=== PATIENT | female | born 1980 | race Hispanic/Latino ===

== ENCOUNTER 2023-03-14 15:20 | Emergency (ER) | payer BC ==
--- OUTSIDE RECORDS SUMMARY | 2023-03-14 15:23 | XMS REPORT | Continuity of Care Document ---
:[address] [facility] t Address [address] [place] [address] Care Team Providers Name Role Phone Asked, No Pcp Primary Care Physician Unavailable Levy DIAZ, Candy Wilkinson Attending Clinician [phone] Juan Ventura MD Attending Clinician [phone] Dorothy Carmona MD Attending Clinician [phone] DOROTHY CARMONA Admitting Clinician Unavailable Payers Payer Name Policy Type Policy Number Effective Date Expiration Date S ource Problems Condition Condition Condition Status Onset Resolution Last Treating Co mments Source Name Details Category Date Date Treatment Clinician Date Acute Acute Disease Active Methodi hypoxemic hypoxemic 7-17 st respirator respirator 00:00: Ho spita y failure y failure 00 l due to due to COVID-19 COVID-19 Pneumonia Pneumonia Disease Active Met hodi due to due to 7-12 st COVID-19 COVID-19 00:00: Hospit a virus virus 00 l Allergies, Adverse Reactions, Alerts This patient has no known allergies or adverse reactions. Family History Family Member Diagnosis Comments Start Date Stop Date Source Natural father Asthma [facility] Natural mother Diabetes [facility] Natural mother Hyperthyroidism [facility] Social History Social Habit Start Date Stop Date Quantity Comments Source History SDOH [facility] Std Drinks Hospit al History SDOH [facility] Binge [facility] History SDOH [facility] Comment Hospital Gender identity [facility] History of Social 2022-12-20 2022-12-[address] function 00:00:00 00:00:00 Hospital Tobacco use and 2021-04-22 2021-04-22 Smokeless [facility] exposure 00:00:00 00:00:00 tobacco non-user Hospital History SDOH 2021-04-22 2021-04-22 1 [facility] Alcohol Frequency 00:00:00 00:00:00 Hospita l Alcohol intake 2021-04-22 2021-04-22 Lifetime [facility] 00:00:00 00:00:00 non-drinker Hospital (finding) Sex Assigned At [birth year] [facility] 00:[facility]00 Hospital Smoking Status Start Date Stop Date Source Never smoked tobacco [facility] Medications Ordered Filled Start Stop Current Ordering Indication Dosage Frequency Signature Comments Components Source Medication Medication Date Date Medication? Clinician (SIG) Name Name metFORMIN No 500mg Q.5D Take 1 Meth troy (Glucophage 04-[address] ) 500 mg 00:00: 04:59 (500 mg Hospi ta tablet 00 :00 total) by l mouth 2 (two) times a day with meals for 30 days. albuterol No 2{puff} Q6H Inhale 2 Methodi (PROAIR 04-[address] HFA) 90 00:00: 04:59 every 6 Hospit a mcg/actuati 00 :00 (six) l on inhaler hours as needed for wheezing for up to 30 days. predniSONE No 40mg QD Take 2 Meth troy (DELTASONE) 04-[address] 20 mg 00:00: 04:59 (40 mg Hospita tablet 00 :00 total) by l mouth daily for 5 days. Immunizations Ordered Immunization Filled Immunization Date Status Commen ts Source Name Name Remdesivir 2021-04-26 Completed [facility] 00:00[facility]00 [facility] Remdesivir 2021-04-26 Completed [facility] 00:00:00 [facility] Remdesivir 2021-04-25 Completed [facility] 00:00:00 Hospital Remdesivir 2021-04-25 Completed [facility] 00:00:00 [facility] Remdesivir 2021-04-24 Completed [facility] 00:00:00 Hospital Remdesivir 2021-04-24 Completed [facility] 00:00:00 [facility] Remdesivir 2021-04-23 Completed [facility] 00:00:00 [facility] 2021-04-23 Completed [facility] 00:00:00 [facility] 2021-04-22 Completed [facility] 00:00:00 [facility] 2021-04-22 Completed [facility] 00:00:00 [facility] Vital Signs Vital Name Observation Time Observation Value Comments Source Systolic blood 2021-04-28 16:37:03 110 mm[Hg] [facility] pressure Diastolic blood 2021-04-28 16:37:03 72 mm[Hg] [facility] pressure Heart rate 2021-04-28 16:37:03 92 /min [facility] Body temperature 2021-04-28 16:37:03 36.22 Teresa [facility] Respiratory rate 2021-04-28 16:37:03 20 /min [facility] Oxygen saturation in 2021-04-28 16:37:03 95 /min [facility] Arterial blood by Pulse oximetry Body weight 2021-04-28 11:00:00 131.362 kg [facility] BMI 2021-04-28 11:00:00 36.20 kg/m2 [facility] Body height 2021-04-22 06:48:40 190.5 cm [facility] Procedures Procedure Date / Time Performing Clinician Source Performed POC GLUCOSE 2021-04-28 16:35:00 [facility] POC GLUCOSE 2021-04-28 13:42:00 [facility] POC GLUCOSE 2021-04-28 12:59:00 [facility] XR CHEST 1 VW PORTABLE 2021-04-28 12:52:58 Arpan Burgos [facility] Nomaan MAGNESIUM LEVEL 2021-04-28 10:26:00 [facility] PHOSPHORUS LEVEL 2021-04-28 10:26:00 Candy Lockett [facility] -Ld HC COMPLETE BLD COUNT 2021-04-28 10:26:00 Candy Lockett [facility] W/AUTO DIFF -Ld PROTHROMBIN TIME WITH INR 2021-04-28 10:26:00 Candy Lockett [facility] -Ld C-REACTIVE PROTEIN 2021-04-28 10:26:00 Zahiruddin, [facility] Nomn D-DIMER 2021-04-28 10:26:00 [facility] [place] FERRITIN LEVEL 2021-04-28 10:26:00 [facility] [place] FIBRINOGEN 2021-04-28 10:26:00 [facility] [place] INTERLEUKIN 6 2021-04-28 10:26:00 [facility] [place] LDH 2021-04-28 10:26:00 [facility] ESTIMATED GFR 2021-04-28 10:26:00 [facility] BASIC METABOLIC PANEL 2021-04-28 10:26:00 Candy Lockett [facility] -Ld POC GLUCOSE 2021-04-28 10:09:00 [facility] POC GLUCOSE 2021-04-28 06:44:00 [facility] POC GLUCOSE 2021-04-28 02:00:00 [facility] POC GLUCOSE 2021-04-27 22:32:00 [facility] DUPLEX VENOUS UPPER 2021-04-27 20:30:00 Aubrey [facility] EXTREMITY BILATERAL [place]omaan POC GLUCOSE 2021-04-27 16:37:00 [facility] US DUPLEX VENOUS LOWER 2021-04-27 15:00:00 Christianne Cowan [facility] EXTREMITY BILATERAL Zouheir XR CHEST 1 VW PORTABLE 2021-04-27 12:57:57 Aubrey [facility] [place] POC GLUCOSE 2021-04-27 12:44:00 [facility] LDH 2021-04-27 09:50:00 [facility] [place] BASIC METABOLIC PANEL 2021-04-27 09:50:00 Candy Lockett [facility] -Ld MAGNESIUM LEVEL 2021-04-27 09:50:00 Candy Lockett [facility] -Ld PHOSPHORUS LEVEL 2021-04-27 09:50:00 [facility] COMPLETE BLD COUNT 2021-04-27 09:50:00 [facility] -Ld PROTHROMBIN TIME WITH INR 2021-04-27 09:50:00 Candy Lockett [facility] -Ld C-REACTIVE PROTEIN 2021-04-27 09:50:00 Aubrey [facility] [place] THYROID STIMULATING 2021-04-27 09:50:00 Marielle Skinner [facility] HORMONE D-DIMER 2021-04-27 09:50:00 [facility] [place] FERRITIN LEVEL 2021-04-27 09:50:00 [facility] FIBR[facility]EN 2021-04-27 09:50:00 [facility] [place] ESTIMATED GFR 2021-04-27 09:50:00 [facility] POC GLUCOSE 2021-04-27 09:05:00 [facility] POC GLUCOSE 2021-04-27 05:59:00 [facility] POC GLUCOSE 2021-04-27 01:27:00 [facility] POC GLUCOSE 2021-04-26 21:41:00 [facility] POC GLUCOSE 2021-04-26 15:22:00 [facility] XR CHEST 1 VW PORTABLE 2021-04-26 14:35:00 Aubrey [facility] Nomaan POC GLUCOSE 2021-04-26 13:19:00 [facility] D-DIMER 2021-04-26 09:52:00 [facility] FERRITIN LEVEL 2021-04-26 09:52:00 [facility] FIBRINOGEN 2021-04-26 09:52:00 [facility] INTERLEUKIN 6 2021-04-26 09:52:00 [facility] [place] LDH 2021-04-26 09:52:00 [facility] [place] BASIC METABOLIC PANEL 2021-04-26 09:52:00 Candy Lockett Met [facility] -Ld MAGNESIUM LEVEL 2021-04-26 09:52:00 [facility] PHOSPHORUS LEVEL 2021-04-26 09:52:00 Candy Lockett [facility] -Ld CBC WITH PLATELET AND 2021-04-26 09:52:00 Candy Lockett Met [facility] PROTHROMBIN TIME WITH INR 2021-04-26 09:52:00 Candy Lockett [facility] C-REACTIVE PROTEIN 2021-04-26 09:52:00 [facility] [place] ESTIMATED GFR 2021-04-26 09:52:00 [facility] MANUAL DIFFERENTIAL 2021-04-26 09:52:00 [facility] POC GLUCOSE 2021-04-26 09:01:00 [facility] POC GLUCOSE 2021-04-26 04:51:00 [facility] POC GLUCOSE 2021-04-25 23:18:00 [facility] POC GLUCOSE 2021-04-25 17:38:00 [facility] XR CHEST 1 VW PORTABLE 2021-04-25 14:23:00 Aubrey [facility] Nomaan POC GLUCOSE 2021-04-25 13:25:00 [facility] CBC WITH PLATELET AND 2021-04-25 09:35:00 [facility] DIFFERENTIAL Aimee COMPREHENSIVE METABOLIC 2021-04-25 09:35:00 [facility] PANEL Aimee C-REACTIVE PROTEIN 2021-04-25 09:35:00 [facility] D-DIMER 2021-04-25 09:35:00 [facility] FERRITIN LEVEL 2021-04-25 09:35:00 [facility] [place] FIBRINOGEN 2021-04-25 09:35:00 [facility] [place] INTERLEUKIN 6 2021-04-25 09:35:00 [facility] Nomaan LDH 2021-04-25 09:35:00 [facility] [place] ESTIMATED GFR 2021-04-25 09:35:00 [facility] MANUAL DIFFERENTIAL 2021-04-25 09:35:00 [facility] ECG 12-LEAD 2021-04-25 04:45:25 [facility] POC GLUCOSE 2021-04-25 01:55:00 [facility] POC GLUCOSE 2021-04-24 22:45:00 [facility] VENIPUNC NEED PHYS 2021-04-24 20:25:52 [facility] SKILL,DX OR RX POC GLUCOSE 2021-04-24 17:31:00 [facility] POC GLUCOSE 2021-04-24 13:40:00 [facility] XR CHEST 1 VW PORTABLE 2021-04-24 11:25:00 KatiuskacaArpan mchugh [facility] Nomaawilliam HC COMPLETE BLD COUNT 2021-04-24 09:36:00 [facility] W/AUTO DIFF Aimee COMPREHENSIVE METABOLIC 2021-04-24 09:36:00 [facility] PANEL Aimee C-REACTIVE PROTEIN 2021-04-24 09:36:00 [facility] D-DIMER 2021-04-24 09:36:00 [facility] Nomaan FERRITIN LEVEL 2021-04-24 09:36:00 [facility] [place] FIBRINOGEN 2021-04-24 09:36:00 [facility] [place] INTERLEUKIN 6 2021-04-24 09:36:00 [facility] [place] ESTIMATED GFR 2021-04-24 09:36:00 [facility] POC GLUCOSE 2021-04-24 01:24:00 [facility] POC GLUCOSE 2021-04-23 22:15:00 [facility] POC GLUCOSE 2021-04-23 17:02:00 [facility] TTE COMPLETE, W CONTRAST, 2021-04-23 15:30:00 [facility] W DOPPLER ([id number]) Nomaan XR CHEST 1 VW PORTABLE 2021-04-23 15:10:00 [facility] POC GLUCOSE 2021-04-23 13:37:00 [facility] HC COMPLETE BLD COUNT 2021-04-23 09:53:00 [facility] W/AUTO DIFF Aimee COMPREHENSIVE METABOLIC 2021-04-23 09:53:00 [facility] PANEL Aimee C-REACTIVE PROTEIN 2021-04-23 09:53:00 [facility] D-DIMER 2021-04-23 09:53:00 [facility] B NATRIURETIC PEPTIDE 2021-04-23 09:53:00 [facility] ESTIMATED GFR 2021-04-23 09:53:00 [facility] LDH 2021-04-23 09:53:00 [facility] POC GLUCOSE 2021-04-23 02:03:00 [facility] US DUPLEX VENOUS LOWER 2021-04-23 01:40:00 [facility] EXTREMITY BILATERAL Zouheir POC GLUCOSE 2021-04-22 22:39:00 [facility] VENOUS BLOOD GAS 2021-04-22 21:56:00 [facility] [place] IMMUNOGLOBULIN G 2021-04-22 21:54:00 [facility] [place] [id number] 2021-04-22 21:54:00 CoralolitaMadonnaArpan [facility] DEHYDROGENASE LEVEL Nomaan HCG QUALITATIVE, URINE 2021-04-22 21:34:00 [facility] SCREEN RESPIRATORY PATHOGEN 2021-04-22 16:30:00 Susanne [facility] PANEL WITH COVID-19 RT-PCR POC GLUCOSE 2021-04-22 16:27:00 Juan Ventura [facility] Dorothy PROCALCITONIN 2021-04-22 07:58:00 [facility] Aimee CBC WITH PLATELET AND 2021-04-22 07:58:00 [facility] DIFFERENTIAL Aimee PROTHROMBIN TIME WITH INR 2021-04-22 07:58:00 [facility]aina Escobar [facility] PARTIAL THROMBOPLASTIN 2021-04-22 07:58:00 [facility] Aimee COMPREHENSIVE METABOLIC 2021-04-22 07:58:00 [facility] Aimee HEMOGLOBIN A1C 2021-04-22 07:58:00 [facility] Aimee B NATRIURETIC PEPTIDE 2021-04-22 07:58:00 [facility] L[facility] ACID LEVEL 2021-04-22 07:58:00 [facility] Aimee LIPID PANEL 2021-04-22 07:58:00 Shaina Escobar spital Aimee MAGNESIUM LEVEL 2021-04-22 07:58:00 [facility] Aimee PHOSPHORUS LEVEL 2021-04-22 07:58:00 [facility] A[facility]e TROPONIN 2021-04-22 07:58:00 [facility] Aimee C-REACTIVE PROTEIN 2021-04-22 07:58:00 [facility] Aimee INTERLEUKIN 6 2021-04-22 07:58:00 Shaina Escobar spital Aimee FERRITIN LEVEL 2021-04-22 07:58:00 Shaina Escobar [facility] spital Aimee D-DIMER 2021-04-22 07:58:00 Shaina Escobar Ho roshni Aimee LDH 2021-04-22 07:58:00 Shawn Shaina Silveira Ho spital Aimee ESTIMATED GFR 2021-04-22 07:58:00 Lorenzo [facility] Dorothy MANUAL DIFFERENTIAL 2021-04-22 07:58:00 [facility] CHEST EXTERNAL STUDY 2021-04-22 04:19:[address] [facility] Dorothy XR CHEST EXTERNAL STUDY 2021-04-22 02:41:[address] [facility] Plan of Care Planned Activity Planned Date Details Comments Source Future Scheduled 2023-01-12 COVID-19 VACCINE (#1) [facility] Test 17:53:55 [code = COVID-19 VACCINE (#1)] Future Scheduled 2023-01-12 Pneumococcal Vaccine: [facility] Test 17:53:55 Pediatrics (0 to 5 Years) and At-Risk Patients (6 to 64 Years) (1 - PCV) [code = Pneumococcal Vaccine: Pediatrics (0 to 5 Years) and At-Risk Patients (6 to 64 Years) (1 - PCV)] Future Scheduled 2023-01-12 Hepatitis C screening [facility] Test 17:53:55 (procedure) [code = 889279394] Future Scheduled 2023-01-12 [facility] Test 17:53:55 malignant neoplasm of cervix (procedure) [code = 035477804] Future Scheduled 2023-01-12 BREAST CANCER [facility] Test 17:53:55 SCREENING [code = BREAST CANCER SCREENING] Future Scheduled 2023-01-12 INFLUENZA VACCINE [facility] Test 17:53:55 [code = INFLUENZA VACCINE] Future Scheduled 2021-08-15 COVID-19 [facility]ACCINE (1) [facility] 09:54:56 [code = COVID-19 VACCINE (1)] Future Scheduled 2021-08-15 Hepatitis C screening [facility] Test 09:54:56 (procedure) [code = 891308580] Future Scheduled 2021-08-15 [facility] Test 09:54:56 malignant neoplasm of cervix (procedure) [code = 943139337] Future Scheduled 2021-08-15 INFLUENZA VACCINE [facility] Test 09:54:56 [code = INFLUENZA VACCINE] Encounters Start End Encounter Admission Attending Care Care Encounter Source Date/Time Date/Time Type Type Clinicians Facility Department ID 2021-05-20 2021-05-20 Outpatient [facility] PENFHAU [facility] 00:00:00 00:00:00 [id number] 2021-05-20 2021-05-20 Refill Candy Lockett 1.2.840.1 [id number] Methodi 00:00:00 00:00:[address] -Ld 3.430.2.7 Hospit a .3.884332 l .8 2021-04-22 2021-04-28 [facility] Juan Ventura Dorothy 1.2.840.1 [id number] Methodi 01:23:00 12:18:00 Encounter Dorothy Carmona Juan [address]353.1.[address] 3.430.2.7 Hospit a .3.020672 l .8 2021-04-22 2021-04-22 Travel 1.2.840.1 [id number] Methodi 00:00:00 00:00:[address] 3.430.2.7 0.2.7.3.698 Ho spita .3.378161 084.8 l .8 Results Test Description Test Time Test Comments Results Result Comments Source POC glucose 2021-04-28 16:36:10 Test Item Value Reference Range Interpretation Comme nts POC glucose (test code = 275 mg/dL 65-99 H Ope rator Name: Yunier Gipson [id number]) ID: [id number] hartable: [facility] Notified floorperson Interpretation (test code = Abnormal 96668-9) [facility] 12 [id number] 16:19:29 Test Item Value Reference Range Interpretation Comments Ventricular rate (test code = 253) Atrial rate (test code = 255) MA interval (test code = 266) QRSD interval (test code = 260) QT interval (test code = 264) QTC interval (test code = 265) P axis 1 (test code = 267) QRS axis 1 (test code = 268) T wave axis (test code = 270) EKG impression (test Sinus code = 273) bradycardia-Otherwise normal ECG-No previous ECGs available-Electronica lly Signed By Isha Gonzalez MD ([id number]) on 04/25/2021 11:19:25 AM [facility]
--- NOTE | 2023-03-14 16:28 | RAD REPORT ---
EXAM DESCRIPTION: RAD - Hand Left 3 View - 03/14/2023 4:14 pm CLINICAL HISTORY: Pain;Swelling COMPARISON: No comparisons FINDINGS/IMPRESSION: No acute fracture. No malalignment. No significant focal degenerative changes.
[2023-03-14] MEDS ORDERED: LIDOCAINE 1% MPF 5 ML VIAL ONE (16:45)
--- NOTE | 2023-03-14 17:17 | ER ---
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 Bleeding ll1 controlled. Coronavirus screen: Client denies travel out of the [place] in the last 14 days. At this time, the client does not indicate any symptoms associated with coronavirus-19. Ebola Screen: Patient denies travel to an Ebola-affected area in the 21 days before illness onset. Initial Sepsis Screen: Does the patient meet any 2 criteria? No. Patient's initial sepsis screen is negative. Does the patient have a suspected source of infection? Yes: Skin breakdown/wound. Risk Assessment: Do you want to hurt yourself or someone else? Patient reports no desire to harm self or others. Onset of symptoms was March 14, 2023. 15:32 Method Of Arrival: Ambulatory ll1 15:32 Acuity: MONSTER 4 ll1 Triage Assessment: 15:35 General: Appears in no apparent distress. Behavior is calm, cooperative, appropriate ll1 for age. Pain: Complains of pain in left hand Quality of pain is described as aching. Derm: Reports pain. Musculoskeletal: Circulation, motion, and sensation intact. Capillary refill < 3 seconds. Historical: - Allergies: 15:33 No Known Allergies; ll1 - PMHx: 15:33 None; ll1 - PSHx: 15:33 Appendectomy; ll1 - Immunization history:: Last tetanus immunization: < 10 years ago. - Social history:: Smoking status: Patient denies any tobacco usage or history of. Vital Signs: 15:32 BP 146 / 91; Pulse 64; Resp 16; Temp 98.3; Pulse Ox 99% ; Weight 140.61 kg; Height 6 ll1 ft. 3 in. ; Pain 3/10; 15:32 Body Mass Index 38.75 (140.61 kg, 190.5 cm) ll1 15:32 Pain Scale: Adult ll1 ED Course: 15:22 Patient arrived in ED. mr 15:25 Sunita Del Valle FNP [facility] 15:25 Eliud Reyes MD is Attending Physician. 7 15:33 Triage completed. ll1 15:34 Arm band placed on. ll1 16:16 XRAY Hand LEFT 3 View In Process Unspecified. EDMT 16:32 Keon Montoya, RN is Primary Nurse. jl7 17:35 Patient has correct armband on for positive identification. jl7 17:35 Assist provider with laceration repair on left hand that was 2.5 cm. or less using jl7 sutures. Set up tray. Performed by Sunita TRUJILLO Dressed with band aid, Patient tolerated well. Patient did not have IV access during this emergency room visit. Administered Medications: 16:49 Drug: Lidocaine Infiltration (1 %) 5 ml {Note: administered by ERP.} Volume: 5 ml; jl7 Route: Infiltration; 17:35 Follow up: Response: No adverse reaction jl7 Medication: 17:35 VIS not applicable for this client. jl7 Outcome: 17:16 Discharge ordered by MD. 7 17:35 Discharged to home ambulatory. jl7 17:35 Condition: stable 17:35 Discharge instructions given to patient, Instructed on discharge instructions, follow up and referral plans. medication usage, Demonstrated understanding of instructions, follow-up care, medications, Prescriptions given X 1. 17:36 Patient left the ED. 7 Signatures: Dispatcher [employer] [facility] [place] mr Keon Montoya, RN RN America Lees RN RN [facility] Sunita Del Valle FNP FNP [facility] Corrections: (The following items were deleted from the chart) 15:34 15:33 PSHx: None; 1 1
--- NOTE | 2023-03-14 17:17 | EDPHYS ---
Physician Documentation [facility] Name: Bette De Anda Age: 42 yrs Sex: Female : 1980 Arrival Date: 03/14/2023 Time: 15:20 Bed 10 Private MD: ED Physician Eliud Reyes HPI: 03/14 15:35 This 42 yrs old Female presents to ER via Ambulatory with complaints of jh7 drilled hole in hand. 15:35 Onset: The symptoms/episode began/occurred acutely. Patient reports that she was jh7 attempting to build a Lego table for her son and drilled her hand with a drill bit. Reports significant bleeding after the injury but that the wound is not through and through. Full range of motion of the left hand.. Historical: - Allergies: 15:33 No Known Allergies; ll1 - PMHx: 15:33 None; ll1 - PSHx: 15:33 Appendectomy; ll1 - Immunization history:: Last tetanus immunization: < 10 years ago. - Social history:: Smoking status: Patient denies any tobacco usage or history of. ROS: 15:35 Constitutional: Negative for fever, chills, and weight loss, Eyes: Negative for injury, jh7 pain, redness, and discharge, Neck: Negative for injury, pain, and swelling, Cardiovascular: Negative for chest pain, palpitations, and edema, Respiratory: Negative for shortness of breath, cough, wheezing, and pleuritic chest pain, Abdomen/GI: Negative for abdominal pain, nausea, vomiting, diarrhea, and constipation, Back: Negative for injury and pain, MS/Extremity: Negative for injury and deformity, Neuro: Negative for headache, weakness, numbness, tingling, and seizure. 15:35 Skin: Positive for puncture, of the left hand. 15:35 All other systems are negative. Exam: 15:35 Constitutional: This is a well developed, well nourished patient who is awake, alert, jh7 and in no acute distress. Head/Face: Normocephalic, atraumatic. Eyes: Pupils equal round and reactive to light, extra-ocular motions intact. Lids and lashes normal. Conjunctiva and sclera are non-icteric and not injected. Cornea within normal limits. Periorbital areas with no swelling, redness, or edema. Cardiovascular: Regular rate and rhythm with a normal S1 and S2. No gallops, murmurs, or rubs. Normal PMI, no JVD. No pulse deficits. Respiratory: Lungs have equal breath sounds bilaterally, clear to auscultation and percussion. No rales, rhonchi or wheezes noted. No increased work of breathing, no retractions or nasal flaring. Abdomen/GI: Soft, non-tender, with normal bowel sounds. No distension or tympany. No guarding or rebound. No evidence of tenderness throughout. MS/ Extremity: Pulses equal, no cyanosis. Neurovascular intact. Full, normal range of motion. Neuro: Awake and alert, GCS 15, oriented to person, place, time, and situation. Motor strength 5/5 in all extremities. Sensory grossly intact. Normal gait. 15:35 Skin: injury, puncture(s), that are deep, of the Deep large (1.5x1.5cm) flap puncture wound on palmar aspect of left hand at the distal second metacarpal. There is a large amount of subcutaneous fat protruding from the wound.. Vital Signs: 15:32 BP 146 / 91; Pulse 64; Resp 16; Temp 98.3; Pulse Ox 99% ; Weight 140.61 kg; Height 6 ll1 ft. 3 in. ; Pain 3/10; 15:32 Body Mass Index 38.75 (140.61 kg, 190.5 cm) ll1 15:32 Pain Scale: Adult ll1 Laceration: 16:50 Wound Repair of 1.5cm ( 0.6in ) subcutaneous laceration to left hand. Irregularly jh7 shaped.. Skin/tissue flap noted.. Distal neuro/vascular/tendon intact. Anesthesia: Local anesthetic administered with 5 mls of 1% lidocaine. Wound prep: Wound explored extensively, Copious irrigation. Skin closed with 5 5-0 Prolene using simple sutures and sterile technique. Dressed with non-adherent dressing. Patient tolerated well. MDM: 15:25 Patient medically screened. [facility] 16:50 Differential diagnosis: Hand laceration. Data reviewed: vital signs, nurses notes, [facility] radiologic studies, plain films. I considered the following discharge prescriptions or medication management in the emergency department Medications were administered in the Emergency Department. See MAR. Counseling: I had a detailed discussion with the patient and/or guardian regarding: the historical points, exam findings, and any diagnostic results supporting the discharge/admit diagnosis, the need for outpatient follow up, a hand specialist, to return to the emergency department if symptoms worsen or persist or if there are any questions or concerns that arise at home. Special discussion: Informed the patient that the flap utilized to cover the open wound will likely fall off and that it is only being used as a barrier to help prevent infection. Advised her to follow-up with hand to ensure wound is healing appropriately. Otherwise she may follow-up here within 7 days for suture removal.. 03/14 15:37 Order name: XRAY Hand LEFT 3 View; Complete Time: 16:29 [facility] 03/14 16:29 Order name: Dressing - Wound; Complete Time: 16:42 [facility] 03/14 16:29 Order name: Gloves, Sterile; Complete Time: 16:42 [facility] 03/14 16:29 Order name: Prolene, Sutures; Complete Time: 16:42 [facility] 03/14 16:29 Order name: Setup Suture Tray; Complete Time: 16:42 [facility] Administered Medications: 16:49 Drug: Lidocaine Infiltration (1 %) 5 ml {Note: administered by ERP.} Volume: 5 ml; [facility] Route: Infiltration; 17:35 Follow up: Response: No adverse reaction [facility] Disposition Summary: 03/14/23 17:16 Discharge Ordered Location: Home [facility] Problem: new [facility] Symptoms: have improved [facility] Condition: Stable [facility] Diagnosis - Laceration without foreign body of left hand, initial encounter [facility] Followup: [facility] - With: Private Physician - When: 2 - 3 days - Reason: Recheck today's complaints Discharge Instructions: - Discharge Summary Sheet [facility] - Laceration Care, Adult [facility] Forms: - Work release form eb - Medication Reconciliation Form [facility] - Thank You Letter [facility] - Antibiotic Education [facility] Prescriptions: - Cephalexin 500 mg Oral Capsule - take 1 capsule by ORAL route every 12 hours for 10 days; 20 capsule; Refills: [facility] 0, Product Selection Permitted Signatures: Dispatcher [employer] Keon Vora RN RN jl7 America Laughlin RN RN ll1 Sunita Del Valle, PROCESSING LEAD PROCESSING LEAD [facility] Corrections: (The following items were deleted from the chart) 15:34 15:33 PSHx: None; ll1 ll1 18:25 15:35 Wound Repair of 1.5cm ( 0.6in ) subcutaneous laceration to left hand. Irregularly jh7 shaped.. Skin/tissue flap noted.. Distal neuro/vascular/tendon intact. Anesthesia: Local anesthetic administered with 5 mls of 1% lidocaine. Wound prep: Wound explored extensively, Copious irrigation. Skin closed with 5 5-0 Prolene using simple sutures and sterile technique. Dressed with non-adherent dressing. Patient tolerated well. jh7
[2023-03-14 17:40] VITALS: BP 146/91; TEMP 98.3; O2SAT 99
== END 2023-03-14 17:36 | disposition home or self-care (01) ==
LOC: ER 15:20
PROC: 0HQGXZZ Repair Left Hand Skin, External Approach (ICD-10-PCS; principal; 2023-03-14)
DX: S61.412A Laceration without foreign body of left hand, initial encounter (principal)
CPT/HCPCS: 73130; 99284; 12001; J2001

== ENCOUNTER 2025-07-08 16:54 | Emergency (ER) | payer OTHER ==
[2025-07-08 17:54] LABS: Absolute Lymphocytes (CBC) 2.4 K/uL (0.7-4.9); Hematocrit 38.6 % (36.0-45.0); Hemoglobin 12.9 g/dL (12.0-15.0); MCH 28.1 pg (27.0-35.0); MCHC 33.5 g/dL (32.0-36.0); MCV 83.9 fL (80-100); MPV 7.1 fL (7.6-11.3); Nucleated RBC Absolute Count 0.0 (0-0); Nucleated Red Blood Cells % 0.1 % (0-0); RBC Red Blood Cell Count 4.60 M/uL (3.86-4.86); White Blood Count 10.00 thou/uL (4.3-10.9)
[2025-07-08 18:13] LABS: ALT/SGPT 33 U/L (13-56); AST/SGOT 26 U/L (15-37); Albumin 3.8 g/dL (3.4-5.0); Albumin/Globulin Ratio 0.8 (1.1-1.8); Alkaline Phosphatase 59 U/L (45-117); Anion Gap 9.7 mEq/L (5.0-15.0); BUN Blood Urea Nitrogen 9 mg/dL (7-18); Bilirubin Indirect, Calculated 0.2 mg/dL (0.2-0.8); Globulin 4.7 g/dL (2.3-3.5); Glucose Level 123 mg/dL (74-106); Potassium 3.7 mEq/L (3.5-5.1)
[2025-07-08 18:14] LABS: Magnesium 2.1 mg/dL (1.6-2.4)
--- NOTE | 2025-07-08 18:45 | RAD REPORT ---
EXAM: CT brain without contrast HISTORY: Headache COMPARISON: None TECHNIQUE: Multiple contiguous axial images were obtained and a CT of the brain without contrast.. Sagittal and coronal reconstruction performed. Automated exposure control, adjustment of the mA and/or kV according to patient size, and/or iterative reconstruction. Unless otherwise specified, incidental f indings do not require dedicated imaging follow-up FINDINGS: An intracranial bleed is not seen Ventricles are normal caliber No extra-axial fluid collection noted No significant hypodensity within the brain No fluid within the visualized sinuses or mastoids noted. IMPRESSION: No acute intracranial abnormality noted. If the patient continues to have symptoms to suggest an acute intracranial abnormality then MRI of th e brain would be recommended.
[2025-07-08] MEDS ORDERED: NA CHLORIDE 0.9% 1,000 ML ONE (18:47)
--- NOTE | 2025-07-08 20:45 | RAD REPORT ---
EXAMINATION: Neck Angio CLINICAL INDICATION: Blurred vision TECHNIQUE: Axial CT images were obtained from the aortic arch to the skull base after intravenous adm inistration of 100 cc Isovue-370 utilizing angiographic protocol. Multiplanar reformats, as well as 3D post-processing (maximum intensity projection images, volume rendered images and/or shaded surface rendered images) were generated and reviewed. One or more of the following dose reduction techniques were used: Automated exposure control, adjustment of the mA and/or kV according to patient size, and/or iterative reconstruction. Unless otherwise specified, incidental findings do not require dedicated imaging follow-up. COMPARISON: No prior exam. FINDINGS: The opacification of the arteries mildly suboptimal. The visualized aortic arch and great vessels do not demonstrate a significant abnormality Common carotid, external carotid and internal carotid arteries unremarkable. Vertebral arteries bilaterally unremarkable No significant stenosis noted. A dissection is not seen. Methods for NASCET criteria: Mild stenosis, 0% to 49%; Moderate stenosis 50% to 69%; Severe stenosis, 70% to 99% IMPRESSION: No acute vascular abnormality displayed
--- NOTE | 2025-07-08 20:49 | RAD REPORT ---
EXAMINATION: CTA HEAD CLINICAL INDICATION: Blurred vision TECHNIQUE: Axial CT images were obtained through the head after 100 cc Isovue-370 intravenous contras t utilizing angiographic protocol with 3D post-processing (maximum intensity projection images, volume rendered images and/or shaded surface rendered images). One or more of the following dose red uction techniques were used: Automated exposure control, adjustment of the mA and/or kV according to patient size, and/or iterative reconstruction. Unless otherwise specified, incidental findings do not require dedicated imaging follow-up. COMPARISON: None FINDINGS: The opacification of the arteries mildly suboptimal Distal internal carotid, basilar, anterior cerebral, middle cerebral and posterior cerebral arteries do not demonstrate a significant stenosis 2 mm outpouching right posterior communicating artery No large vessel occlusion IMPRESSION: 2 mm outpouching right posterior communicating artery presumably a small aneurysm.
--- NOTE | 2025-07-08 21:23 | EDPHYS ---
Physician Documentation [facility] Name: Bette De Anda Age: 45 yrs Sex: Female : 1980 Arrival Date: 07/08/2025 Time: 16:54 Bed 16 Private MD: ED Physician Cyril Fernandez HPI: 07/08 17:19 This 45 yrs old Female presents to ER via Ambulatory with complaints of kb Dizziness. 17:19 Patient is a 45-year-old female who presents for intermittent headache with mild kb dizziness and blurred vision that started yesterday. States she feels pressure in her head and then builds up and subsides. Denies nausea, vomiting. Came in because she was worried that she was going to pass out.. 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 - Infectious Disease History:: Denies. - Social history:: Smoking status: Patient/guardian denies using tobacco, but has a distant history of tobacco abuse. ROS: 17:19 Constitutional: As per HPI kb Exam: 17:19 Constitutional: This is a well developed, well nourished patient who is awake, alert, kb and in no acute distress. Head/Face: Normocephalic, atraumatic. Eyes: Pupils equal round and reactive to light, extra-ocular motions intact. Lids and lashes normal. Conjunctiva and sclera are non-icteric and not injected. Cornea within normal limits. Periorbital areas with no swelling, redness, or edema. ENT: Moist Mucous membranes Cardiovascular: Regular rate Respiratory: Respirations even and unlabored. No increased work of breathing. Talking in full sentences Skin: Warm, dry with normal turgor. Normal color. MS/ Extremity: Pulses equal, no cyanosis. Neurovascular intact. Full, normal range of motion. Neuro: Awake and alert, GCS 15, oriented to person, place, time, and situation. 18:12 ECG was reviewed by the Attending Physician. kb Vital Signs: 17:04 BP 193 / 95; Pulse 77; Resp 17; Temp 98.1; Pulse Ox 99% on R/A; Pain 7/10; dd2 17:56 BP 145 / 79 Supine; Pulse 80; Pulse Ox 100% ; ts3 17:56 BP 140 / 87 Sitting; Pulse 71; Pulse Ox 100% ; ts3 17:56 BP 166 / 96 Standing; Pulse 83; Pulse Ox 100% ; ts3 19:00 BP 156 / 97; Pulse 73; Resp 20; Pulse Ox 100% on R/A; kj2 20:10 BP 143 / 99; Pulse 92; Resp 20; Pulse Ox 100% ; kj2 21:15 BP 163 / 84; Pulse 62; Resp 20; Pulse Ox 100% on R/A; kj2 22:15 BP 162 / 79; Pulse 87; Resp 18; Pulse Ox 96% ; kj2 22:50 BP 144 / 90; Pulse 87; Resp 20; Pulse Ox 100% on R/A; kj2 23:38 Temp 98; kj2 17:04 Pain Scale: Adult dd2 MDM: 16:59 Medical Screening Exam initiated kb 21:20 Data reviewed: vital signs, nurses notes. kb 21:20 Differential diagnosis: CVA, generalized weakness, idiopathic dizziness, TIA, vertigo. kb Consideration of Admission/Observation Escalation of care including admission/observation considered. pt will be transferred for neurosurgery . Counseling: I had a detailed discussion with the patient and/or guardian regarding the historical points, exam findings, and any diagnostic results supporting the discharge/admit diagnosis, lab results, radiology results, the need to transfer to another facility, for higher level of care, [facility] does not immediately have the required specialist. 22:17 Management of patient was discussed with the following: Discussed case with Dr Africa tolliver with neurology at [facility] who accepts pt for consult. Hospitalist accepts pt for transfer. 07/08 17:10 Order name: Basic Metabolic Panel; Complete Time: 18:15 kb 07/08 17:10 Order name: CBC with Diff; Complete Time: 17:55 kb 07/08 17:10 Order name: Hepatic Function; Complete Time: 18:15 kb 07/08 17:10 Order name: Magnesium; Complete Time: 18:15 kb 07/08 17:10 Order name: CT Head Brain wo Cont; Complete Time: 18:49 kb 07/08 18:49 Order name: CT Head Angio; Complete Time: 20:58 kb 07/08 18:49 Order name: CT Neck Angio; Complete Time: 20:58 kb 07/08 17:10 Order name: Cardiac monitoring; Complete Time: 17:47 kb 07/08 17:10 Order name: EKG - Nurse/Tech; Complete Time: 17:47 kb 07/08 17:10 Order name: IV Saline Lock; Complete Time: 17:46 kb 07/08 17:10 Order name: Labs collected and sent; Complete Time: 17:46 kb 07/08 17:10 Order name: NPO; Complete Time: 17:47 kb 07/08 17:10 Order name: O2 Per Protocol; Complete Time: 17:47 kb 07/08 17:10 Order name: O2 Sat Monitoring; Complete Time: 17:47 kb 07/08 17:10 Order name: Orthostatics; Complete Time: 17:56 kb EC:12 Rate is 82 beats/min. Rhythm is regular. QRS [place] is Normal. [place] interval is normal at kb 142 msec. QRS interval is normal at 84 msec. QT interval is normal at 457 msec. Administered Medications: 18:56 Drug: NS 0.9% IV 1000 ml IV at 1000 ml once; to be given as a bolus over 60 minutes kj2 Route: IV; Rate: 1000 ml; Site: left antecubital; 23:38 Follow up: IV Status: Completed infusion kj2 Disposition Summary: 07/08/25 21:22 Transfer Ordered Notes: Transfer Location: [facility] kb Reason: Higher level of care kb Condition: Stable kb Problem: new kb Symptoms: are unchanged kb Accepting Physician: (07/08/25 23:39) kj2 Diagnosis - Headache kb - Dizziness and giddiness kb - 2mm aneurysm right posterior communicating artery kb Forms: - Medication Reconciliation Form kb - SBAR form kb Addendum: 07/13/2025 07:07 Co-signature as Attending Physician, Cyril Fernandez MD I reviewed the patient's care r n provided by the Advanced Practice Provider and agree with the diagnosis and treatment plan. Signatures: Dispatcher [employer] EDEtta Dennis, FRUIT SORTER-C FRUIT SORTER-CkCyril Suárez MD MD rn Jordan, Krystal, RN RN kj2 ANGEL MANE RN RN dd2 Corrections: (The following items were deleted from the chart) 07/08 17:09 17:08 PMHx: None; dd2 dd2 22:18 21:22 Dr kb kb 23:39 22:18 Dr kb kj2
--- NOTE | 2025-07-08 21:23 | ER ---
Nurse's Notes [facility] [place] Name: Bette De Anda Age: 45 yrs Sex: Female : 1980 Arrival Date: 07/08/2025 Time: 16:54 Bed 16 Private MD: Diagnosis: Headache;Dizziness and giddiness;2mm aneurysm right posterior communicating artery Presentation: 07/08 17:04 Chief complaint: Patient states: YESTERDAY BEGAN HAVING DIZZINESS, PAIN IN THE BACK OF dd2 THE HEAD AND WHEN THE PAIN SUBSIDES A WARM FEELING HAPPENS THAT TRAVELS DOWN NECK AND SHOULDERS, ALONG WITH BLURRED VISION. Coronavirus screen: At this time, the client does not indicate any symptoms associated with coronavirus-19. Ebola Screen: No symptoms or risks identified at this time. Initial Sepsis Screen: Does the patient meet any 2 criteria? No. Patient's initial sepsis screen is negative. Does the patient have a suspected source of infection? No. Patient's initial sepsis screen is negative. Risk Assessment: Do you want to hurt yourself or someone else? Patient reports no desire to harm self or others. Onset of symptoms was July 07, 2025 at 10:30. 17:04 Method Of Arrival: Ambulatory dd2 17:04 Acuity: MONSTER 3 dd2 Triage Assessment: 17:08 General: Appears uncomfortable, Behavior is calm, cooperative, appropriate for age. dd2 Pain: Complains of pain in HEAD. Neuro: Reports blurred vision since 1030 07/07/2025 dizziness, headache occipital area. 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 - Infectious Disease History:: Denies. - Social history:: Smoking status: Patient/guardian denies using tobacco, but has a distant history of tobacco abuse. Screenin:20 [facility] ED Fall Risk Assessment (Adult) History of falling in the last 3 months, kj2 including since admission No falls in past 3 months (0 pts) Confusion or Disorientation No (0 pts) Intoxicated or Sedated No (0 pts) Impaired Gait No (0 pts) Mobility Assist Device Used No (0 pt) Altered Elimination No (0 pt) Score/Fall Risk Level 0 - 2 = Low Risk Maintained a safe environment, Hourly rounding (assess needs \T\ fall precautionary measures) done. Abuse screen: Denies threats or abuse. Denies injuries from another. Nutritional screening: No deficits noted. Tuberculosis screening: No symptoms or risk factors identified. Assessment: 17:20 General: Appears in no apparent distress. Behavior is calm, cooperative. Pain: kj2 Complains of pain in back of head Pain currently is 6 out of 10 on a pain scale. Neuro: Level of Consciousness is awake, alert, obeys commands, Oriented to person, place, time, situation. Neuro: Reports dizziness. Cardiovascular: Patient's skin is warm and dry. Respiratory: Airway. GI: No signs and/or symptoms were reported involving the gastrointestinal system. : No signs and/or symptoms were reported regarding the genitourinary system. 18:20 Reassessment: Patient appears in no apparent distress at this time. Patient and/or kj2 family updated on plan of care and expected duration. Pain level reassessed. Patient is alert, oriented x 3, equal unlabored respirations, skin warm/dry/pink. 19:20 Reassessment: Patient appears in no apparent distress at this time. Patient and/or kj2 family updated on plan of care and expected duration. Pain level reassessed. Patient is alert, oriented x 3, equal unlabored respirations, skin warm/dry/pink. 20:17 Reassessment: Patient appears in no apparent distress at this time. Patient and/or kj2 family updated on plan of care and expected duration. Pain level reassessed. Patient is alert, oriented x 3, equal unlabored respirations, skin warm/dry/pink. 21:15 Reassessment: Patient appears in no apparent distress at this time. Patient and/or kj2 family updated on plan of care and expected duration. Pain level reassessed. Patient is alert, oriented x 3, equal unlabored respirations, skin warm/dry/pink. 22:15 Reassessment: Patient appears in no apparent distress at this time. Patient and/or kj2 family updated on plan of care and expected duration. Pain level reassessed. Patient is alert, oriented x 3, equal unlabored respirations, skin warm/dry/pink. 22:50 Reassessment: Patient appears in no apparent distress at this time. Patient and/or kj2 family updated on plan of care and expected duration. Pain level reassessed. Patient is alert, oriented x 3, equal unlabored respirations, skin warm/dry/pink. 23:38 Reassessment: patient leaving by EMS. kj2 Vital Signs: 17:04 BP 193 / 95; Pulse 77; Resp 17; Temp 98.1; Pulse Ox 99% on R/A; Pain 7/10; dd2 17:56 BP 145 / 79 Supine; Pulse 80; Pulse Ox 100% ; ts3 17:56 BP 140 / 87 Sitting; Pulse 71; Pulse Ox 100% ; ts3 17:56 BP 166 / 96 Standing; Pulse 83; Pulse Ox 100% ; ts3 19:00 BP 156 / 97; Pulse 73; Resp 20; Pulse Ox 100% on R/A; kj2 20:10 BP 143 / 99; Pulse 92; Resp 20; Pulse Ox 100% ; kj2 21:15 BP 163 / 84; Pulse 62; Resp 20; Pulse Ox 100% on R/A; kj2 22:15 BP 162 / 79; Pulse 87; Resp 18; Pulse Ox 96% ; kj2 22:50 BP 144 / 90; Pulse 87; Resp 20; Pulse Ox 100% on R/A; kj2 23:38 Temp 98; kj2 17:04 Pain Scale: Adult dd2 ED Course: 16:58 Patient arrived in ED. ts1 16:59 Et[facility] Shore FNP-C [facility] kb 16:59 Cyril Fernandez MD is Attending Physician. kb 17:08 Triage completed. dd2 17:08 Arm band placed on right wrist. dd2 17:13 Patient placed in an exam room, on a stretcher. ll1 17:20 Patient has correct armband on for positive identification. Bed in low position. Call kj2 light in reach. Provided Education on: call light. 17:29 Jodie Washington, RN is Primary Nurse. kj2 17:47 Inserted saline lock: 20 gauge in left antecubital area, using aseptic technique. Blood kj2 collected. Flushed with 10 mL NS. 17:56 EKG done, by process control technician. reviewed by Etta PRINCE. ts3 18:22 CT Head Brain wo Cont In Process Unspecified. EDMS 19:59 CT Head Angio In Process Unspecified. EDMS 19:59 CT Neck Angio In Process Unspecified. EDMS 23:37 No provider procedures requiring assistance completed. Patient transferred, IV remains kj2 in place. Administered Medications: 18:56 Drug: NS 0.9% IV 1000 ml IV at 1000 ml once; to be given as a bolus over 60 minutes kj2 Route: IV; Rate: 1000 ml; Site: left antecubital; 23:38 Follow up: IV Status: Completed infusion kj2 Medication: 18:56 VIS not applicable for this client. kj2 Outcome: 21:22 ER care complete, transfer ordered by MD. tolliver 23:37 Transferred by ground EMS kj2 23:37 Condition: stable 23:37 Instructed on the need for transfer, 23:39 Patient left the ED. kj2 Signatures: Dispatcher [employer] EDEtta Dennis, TRUCK UNLOADER-C TRUCK UNLOADER-America Moreno RN RN ll1 Leatha Venegas PAS PAS ts1 Jodie Washington RN RN kj2 ANGEL MANE RN RN dd2 Valarie Monreal ts3 Corrections: (The following items were deleted from the chart) 17:09 17:08 PMHx: None; dd2 dd2
[2025-07-08 23:54] VITALS: BP 144/90; O2SAT 100
[2025-07-08 23:55] VITALS: TEMP 98
== END 2025-07-08 23:39 | disposition short-term general hospital (02) ==
LOC: ER 16:54
DX: I67.1 Cerebral aneurysm, nonruptured (principal); R42 Dizziness and giddiness; R51.9 Headache, unspecified; H53.8 Other visual disturbances; J45.909 Unspecified asthma, uncomplicated
CPT/HCPCS: 96361; 93005; 85025; 80048; 36415; 83735; 80076; 70450; 70496; 70498; 96360; 99285; Q9967; J7030